=== PATIENT | male | born 1970 | race Native Hawaiian/Other Pacific Islander ===

== ENCOUNTER 2016-12-07 15:01 | Observation (INO) | payer OTHER ==
[~2016-12-07] VITALS: Ht 172.7 cm; Wt 86.0 kg
[~2016-12-07 15:01] MED LIST: ALPR.25 PO; ASPI-119 PO; AUGM875T PO; BUPR150T3 PO; CENTTAB8 PO; EMPA1TAB PO; FEXO60TA PO; GLIP10TA6 PO; GLUCTAB PO; LEXA10TA PO; PRED10PA PO; RITA20TA PO; SIMV40 PO; TOVI4TAB PO; TRAD5TAB PO; TRAM50 PO; VITA-13 PO
[2016-12-07 15:03] VITALS: BP 140/85; PULSE 86; RESP 17; TEMP 98.2; O2SAT 98
[2016-12-07 16:05] LABS: AUTOMATED NEUTROPHIL # 4.4 TH/MM3 (1.8-7.7); BASOPHIL % 0.3 % (0.0-2.0); EOSINOPHIL # 0.2 TH/MM3 (0-0.4); EOSINOPHIL % 2.6 % (0.0-4.0); HEMATOCRIT 44.5 % (39.0-51.0); HEMO FLAGS DIFF FINAL; LYMPH % 38.3 % (9.0-44.0); LYMPHOCYTE # 3.1 TH/MM3 (1.0-4.8); MEAN CELL VOLUME 84.8 FL (80.0-100.0); MEAN CORPUSCULAR HEMOGLOBIN 29.6 PG (27.0-34.0); MEAN CORPUSCULAR HGB CONC 34.9 % (32.0-36.0); MONO % 5.4 % (0.0-8.0); NEUT % 53.4 % (16.0-70.0); PLATELET COUNT 182 TH/MM3 (150-450); RED BLOOD COUNT 5.25 MIL/MM3 (4.50-5.90); RED CELL DISTRIBUTION WIDTH 12.5 % (11.6-17.2); WHITE BLOOD COUNT 8.2 TH/MM3 (4.0-11.0)
--- NOTE | 2016-12-07 16:16 | RADRPT ---
EXAM DATE/TIME: 12/07/2016 16:09 [facility] COMPARISON: No previous studies available for comparison. INDICATIONS : Chest and left upper arm pain MEDICAL HISTORY : None. SURGICAL HISTORY : None. ENCOUNTER: Initial ACUITY: 2 weeks PAIN SCORE: 3/10 LOCATION: chest FINDINGS: A single view of the chest demonstrates the lungs to be symmetrically aerated without evidence of mas s, infiltrate or effusion. The cardiomediastinal contours are unremarkable. Osseous structures are intact. CONCLUSION: No acute disease. Nicolas Aquino MD on December 07, 2016 at 16:15 Board Certified Radiologist. This report was verified electronically.
[2016-12-07 16:36] LABS: ANION GAP 8 MEQ/L (5-15); BICARBONATE 27.3 MEQ/L (21.0-32.0); BLOOD UREA NITROGEN 6 MG/DL (7-18); CHLORIDE 105 MEQ/L (98-107); GLOMERULAR FILTRATION RATE 100 ML/MIN (>89); POTASSIUM 3.9 MEQ/L (3.5-5.1); SODIUM (NA) 140 MEQ/L (136-145)
[2016-12-07 16:40] LABS: CREATINE KINASE 231 U/L (39-308)
[2016-12-07 16:52] LABS: CKMB 0.9 NG/ML (0.5-3.6)
[2016-12-07 17:15] VITALS: O2SAT 98
--- NOTE | 2016-12-07 17:23 | PD ---
HPI Chief Complaint: Medical Clearance Time Seen by Provider: 17:05 Travel History International Travel<30 days: No Contact w/Intl Traveler<30days: No Traveled to known affect area: No History of Present Illness HPI 46-year-old male arrives with chest pain. He developed a neck muscle spasm which eventually radiated down the left arm and into the region of the left chest. He noticed a left chest pain at rest a couple days prior. There is no exertional or pleuritic component however some changes in position worsen the pain. He reports a family history of coronary artery disease with his mother suffering a heart attack in her early 50s. He has diabetes. He denies hypertension. He does not smoke. He recently initiated a workout regimen. He' s also been performing dips. No fever/chills. PFSH Past Medical History Hx Anticoagulant Therapy: Yes (ASA 81MG DAILY) Cardiovascular Problems: No High Cholesterol: Yes Chemotherapy: No Cerebrovascular Accident: No Diabetes: Yes (ON METFORMIN) Respiratory: Yes (SLEEP APNEA, WHEEZING) Social History Alcohol Use: No Tobacco Use: Yes Substance Use: No Allergies-Medications (Allergen,Severity, Reaction): Coded Allergies: No Known Allergies (Verified , 12/07/16) Reported Meds & Prescriptions Reported Meds & Active Scripts Active Ultram (Tramadol HCl) 50 Mg Tab 50 Mg PO Q6H PRN FOR PAIN Sterapred Ds 12 Day Pack (Prednisone) 10 Mg Benson 10 Mg PO DIRECTED USE DIRECTED Augmentin 875 mg Tab (Amoxicillin & Pot Clavulanate 875 mg Tab) 875 Mg Tab 875 Mg PO BID Reported Ritalin (Methylphenidate HCl) 20 Mg Tab 1 Tab PO BID Dillon Low Dose (Aspirin) 81 Mg Tab 81 Mg PO HS Bupropion Hcl Xl (Bupropion HCl) 150 Mg Tab 150 Mg PO HS Xanax 0.25 Mg (Alprazolam) Alprazolam 0.25 mg Tab 1 Tab PO BID PRN Tradjenta (Linagliptin) 5 Mg Tab 5 Mg PO DAILY@1600 Metformin (Metformin HCl) 500 Mg Tab 500 Mg PO DAILY@1600 Glipizide 10 Mg Tab 10 Mg PO BID TAKE BEFORE MEALS Jardiance (Empagliflozin) 10 Mg Tab 10 Mg PO HS Lexapro (Escitalopram Oxalate) 10 Mg Tab 10 Mg PO DAILY Toviaz (Fesoterodine Fumarate) 4 Mg Tab 4 Mg PO DAILY Centrum Adults (Multiple Vitamins W/ Minerals) 1 Tab Tab 1 Tab PO HS Vitamin D3 1000 Unit Tab (Cholecalciferol) 1,000 Unit Tab 4,000 Unit PO HS Lucrecia (Fexofenadine HCl) 60 Mg Tab 180 Mg PO DAILY PRN Simvastatin 40 mg (Simvastatin) 40 Mg Tab 1 Tab PO DAILY Review of Systems Except as stated in HPI: all other systems reviewed are Neg Cardiovascular: Positive: Chest Pain or Discomfort Physical Exam Narrative GENERAL: 46 yo M, WNWD, NAD SKIN: Warm and dry. HEAD: Atraumatic. Normocephalic. EYES: Pupils equal and round. No scleral icterus. No injection or drainage. ENT: No nasal bleeding or discharge. Mucous membranes pink and moist. NECK: Trachea midline. No JVD. CARDIOVASCULAR: Regular rate and rhythm. Minimal TTP left anterior chest wall. RESPIRATORY: No accessory muscle use. Clear to auscultation. Breath sounds equal bilaterally. GASTROINTESTINAL: Abdomen soft, non-tender, nondistended. Hepatic and splenic margins not palpable. MUSCULOSKELETAL: Extremities without clubbing, cyanosis, or edema. No obvious deformities. NEUROLOGICAL: Awake and alert. No obvious cranial nerve deficits. Motor grossly within normal limits. Five out of 5 muscle strength in the arms and legs. Normal speech. PSYCHIATRIC: Appropriate mood and affect; insight and judgment normal. Data Data Last Documented VS Vital Signs Date Time Temp Pulse Resp B/P Pulse Ox O2 Delivery O2 Flow Rate FiO2 12/07/16 15:24 12/07/16 15:03 98.2 86 17 98 VS reviewed BP is 164/75 Orders Electrocardiogram (12/07/16 ) Complete Blood Count With Diff (12/07/16 15:52) Basic Metabolic Panel (Bmp) (12/07/16 15:52) Ckmb (Isoenzyme) Profile (12/07/16 15:52) Troponin I (12/07/16 15:52) Chest, Single Ap (12/07/16 15:52) Iv Access Insert/Monitor (12/07/16 15:52) Ecg Monitoring (12/07/16 15:52) Oxygen Administration (12/07/16 15:52) Oximetry (12/07/16 15:52) CKMB (12/07/16 15:55) CKMB% (12/07/16 15:55) Labs Laboratory Tests Test 12/07/16 15:55 White Blood Count 8.2 TH/MM3 Red Blood Count 5.25 MIL/MM3 Hemoglobin 15.5 GM/DL Hematocrit 44.5 % Mean Corpuscular Volume 84.8 FL Mean Corpuscular Hemoglobin 29.6 PG Mean Corpuscular Hemoglobin 34.9 % Concent Red Cell Distribution Width 12.5 % Platelet Count 182 TH/MM3 Mean Platelet Volume 9.1 FL Neutrophils (%) (Auto) 53.4 % Lymphocytes (%) (Auto) 38.3 % Monocytes (%) (Auto) 5.4 % Eosinophils (%) (Auto) 2.6 % Basophils (%) (Auto) 0.3 % Neutrophils # (Auto) 4.4 TH/MM3 Lymphocytes # (Auto) 3.1 TH/MM3 Monocytes # (Auto) 0.4 TH/MM3 Eosinophils # (Auto) 0.2 TH/MM3 Basophils # (Auto) 0.0 TH/MM3 CBC Comment DIFF FINAL Differential Comment Sodium Level 140 MEQ/L Potassium Level 3.9 MEQ/L Chloride Level 105 MEQ/L Carbon Dioxide Level 27.3 MEQ/L Anion Gap 8 MEQ/L Blood Urea Nitrogen 6 MG/DL Creatinine 0.83 MG/DL Estimat Glomerular Filtration 100 ML/MIN Rate Random Glucose 173 MG/DL Calcium Level 8.9 MG/DL Total Creatine Kinase 231 U/L Creatine Kinase MB 0.9 NG/ML Troponin I LESS THAN 0.02 NG/ML [facility] Medical Decision Making Medical Screen Exam Complete: Yes Emergency Medical Condition: Yes Medical Record Reviewed: Yes Differential Diagnosis NSTEMI, unstable angina, coronary vasospasm, PE, PTX, aortic dissection, pericarditis, myocarditis, endocarditis, PNA, esophageal disease, aneurysm, musculoskeletal etiologies, anxiety, cocaine/sympathomimetic abuse Narrative Course EKG reveals a sinus rhythm normal axis intervals no acute ischemia Troponin less than 0.02 CBC & BMP Diagram 12/07/16 15:55 Last 24 hours Impressions Chest X-Ray 12/07/16 1552 Signed Impressions: Service Date/Time: Wednesday, December 07, 2016 16:09 - CONCLUSION: No acute disease. Nicolas Aquino MD Patient will undergo chest pain center protocol. Diagnosis Primary Impression: Chest pain Qualified Code: R07.9 - Chest pain, unspecified type Admitting Information Admitting Physician Requests: Observation Tony Alberts MD Dec 07, 2016 17:23
[2016-12-07] MEDS ORDERED: ONDANSETRON HCL 4 MG/2 ML VIAL IV PRN (17:30)
[2016-12-07] MEDS ORDERED: TEMAZEPAM 15 MG CAP PO PRN (17:30)
[2016-12-07] MEDS ORDERED: ACETAMINOPHEN/HYDROcodone 325 MG/7.5 MG TAB PO PRN (17:30)
[2016-12-07] MEDS ORDERED: ALPRAZolam 0.25 MG TAB PO PRN (17:30)
[2016-12-07] MEDS ORDERED: NITROGLYCERIN 0.4 MG SL 25 TABS/BTL SL PRN (17:30)
[2016-12-07] MEDS ORDERED: MORPHINE SULFATE 4 MG/ML INJ IV PRN (17:30)
[2016-12-07 20:11] LABS: CREATINE KINASE 206 U/L (39-308)
[2016-12-07 22:30] VITALS: PULSE 78
[2016-12-07 22:32] VITALS: BP 116/65; PULSE 72; RESP 20; TEMP 97.8; O2SAT 98
[2016-12-07 23:12] LABS: CREATINE KINASE 213 U/L (39-308)
[2016-12-07 23:25] LABS: CKMB 0.7 NG/ML (0.5-3.6)
[2016-12-07 23:30] VITALS: O2SAT 97
[2016-12-08 04:57] VITALS: BP 135/76; PULSE 68; RESP 18; TEMP 98.4; O2SAT 97
[2016-12-08 08:02] VITALS: BP 115/75; PULSE 68; RESP 19; TEMP 97.3; O2SAT 98
[2016-12-08] MEDS ORDERED: ASPIRIN 325 MG TAB PO SCH (09:00)
--- NOTE | 2016-12-08 09:27 | EKG ---
Date Performed: 12/07/2016 Time Performed: 19:16:04 PTAGE: 46 years EKG: Sinus rhythm NORMAL ECG Since PREVIOUS TRACING , no significant change noted PREVIOUS TRACIN12/07/2016 15.50 DOCTOR: Nova Beck Interpretating Date/Time 12/08/2016 09:26:59
--- NOTE | 2016-12-08 10:31 | HHI.HP ---
[facility] Primary Care Physician Iker Brush MD, PhD Chief Complaint Chest pain History of Present Illness This is a 46-year-old male that presents to ED complaining of a chest discomfort. He states that 3 weeks ago he had a discomfort in his neck and back. He states he had pulled a muscle. Then is that began to feel better he started having a discomfort in his left upper arm it would radiate into the axillary region and into the left chest. Certain motions or movements as well as pressing on the areas can bring on or exacerbated the symptoms. Cannot recall trauma. Denies shortness of breath, nausea, or diaphoresis. He states he believes it is a pulled muscle however he was concerned being that his mother has coronary disease. Denies recent illness. Denies fevers or chills. Review of Systems General: Patient denies fevers, chills recent, and recent travel HEENT: Patient denies headache, sore throat, difficulty swallowing. Cardiovascular: Has the chest discomfort as mentioned above. Denies sensation of heart beating rapidly or irregularly. No syncope. Denies diaphoresis Respiratory: Denies shortness of breath or inspirational chest discomfort. Denies coughing wheezing or hemoptysis. GI: Patient denies nausea, vomiting, diarrhea, abdominal pain, bloody stools. Musculoskeletal: Patient denies joint pain or edema. Denies calf pain or edema. Neurovascular: Patient denies numbness, tingling, weakness in extremities. Denies headache. Endocrine: Denies polyuria and polydipsia. Hematologic: Denies easy bruising. Skin: Denies rash or itching. Past Family Social History Allergies: Coded Allergies: No Known Allergies (Verified , 12/07/16) Past Medical History Diabetes and hyperlipidemia. Sleep apnea. Denies hypertension and coronary disease. Past history of tobacco abuse. Past Surgical History Noncontributory. Reported Medications Reported Meds & Active Scripts Active Reported Dillon Low Dose (Aspirin) 81 Mg Tab 81 Mg PO HS Bupropion Hcl Xl (Bupropion HCl) 150 Mg Tab 150 Mg PO HS Tradjenta (Linagliptin) 5 Mg Tab 5 Mg PO DAILY@1600 Glucophage XR 24 HR (Metformin HCl) 500 Mg Tab 500 Mg PO DAILY@1600 Glipizide 10 Mg Tab 10 Mg PO BID TAKE BEFORE MEALS Jardiance (Empagliflozin) 10 Mg Tab 10 Mg PO HS Lexapro (Escitalopram Oxalate) 10 Mg Tab 10 Mg PO DAILY Toviaz (Fesoterodine Fumarate) 4 Mg Tab 4 Mg PO DAILY Centrum Adults (Multiple Vitamins W/ Minerals) 1 Tab Tab 1 Tab PO HS Vitamin D3 (Cholecalciferol) 1,000 Unit Tab 10,000 Unit PO DAILY Lucrecia (Fexofenadine HCl) 60 Mg Tab 180 Mg PO DAILY PRN Simvastatin 40 mg (Simvastatin) 40 Mg Tab 1 Tab PO DAILY Active Ordered Medications Current Medications Medications (Trade) Dose Ordered Sig/Kenzie Route Start Time Stop Time Status Last Admin ([place] 7.5-325 Mg) 1 tab Q4H PRN PO 12/07/16 17:30 (Morphine Inj) 2 mg Q4H PRN IV 12/07/16 17:30 (Zofran Inj) 4 mg Q6H PRN IV 12/07/16 17:30 (Nitrostat Sl) 0.4 mg Q5M PRN SL 12/07/16 17:30 (Aspirin) 325 mg DAILY PO 12/08/16 09:00 12/08/16 10:04 (Restoril) 15 mg HS PRN PO 12/07/16 17:30 (Xanax) 0.25 mg Q8H PRN PO 12/07/16 17:30 Family History His mother had an PA in her 50s. Social History Patient along or smoke cigarettes. Has occasional alcohol. Denies illicit drugs. Physical Exam Vital Signs Vital Signs Date Time Temp Pulse Resp B/P Pulse Ox O2 Delivery O2 Flow Rate FiO2 12/08/16 08:02 97.3 68 19 115/75 98 12/08/16 04:57 98.4 68 18 135/76 97 12/07/16 23:30 97 12/07/16 22:32 97.8 72 20 116/65 98 12/07/16 22:30 78 12/07/16 17:15 98 Room Air 12/07/16 17:15 98 12/07/16 15:24 12/07/16 15:03 98.2 86 17 140/85 98 Physical Exam GENERAL: This is a well-nourished, well-developed patient, in no apparent distress. Patient speaks in clear complete sentences. Patient is pleasant. HEENT: Head is atraumatic and normocephalic. Neck is supple without lymphadenopathy and trachea is midline. No JVD or carotid bruits. CARDIOVASCULAR: Regular rate and rhythm without murmurs, gallops, or rubs. RESPIRATORY: Left anterior chest wall is tender. Also is discomfort with movement of the left arm it reproduces into the chest. This is the discomfort he has been having. Clear to auscultation. Breath sounds equal bilaterally. No wheezes, rales, or rhonchi. No use of accessory muscles. GASTROINTESTINAL: Abdomen is nontender, nondistended. Abdomen soft. No obvious pulsatile mass or bruit. No CVA tenderness. Strong femoral pulses bilaterally. Normal bowel sounds in all quadrants. MUSCULOSKELETAL: Patient is moving upper and lower extremities freely. No calf tenderness or edema, no Homans sign. Strong pulses in upper and lower extremities. NEUROLOGICAL: Patient is alert and oriented. Cranial nerves 2-12 are grossly intact. No focal deficits and speech is clear. SKIN: No rash and turgor is normal. Laboratory Laboratory Tests Test 12/07/16 12/07/16 12/07/16 15:55 19:17 21:41 White Blood Count 8.2 Red Blood Count 5.25 Hemoglobin 15.5 Hematocrit 44.5 Mean Corpuscular Volume 84.8 Mean Corpuscular Hemoglobin 29.6 Mean Corpuscular Hemoglobin 34.9 Concent Red Cell Distribution Width 12.5 Platelet Count 182 Mean Platelet Volume 9.1 Neutrophils (%) (Auto) 53.4 Lymphocytes (%) (Auto) 38.3 Monocytes (%) (Auto) 5.4 Eosinophils (%) (Auto) 2.6 Basophils (%) (Auto) 0.3 Neutrophils # (Auto) 4.4 Lymphocytes # (Auto) 3.1 Monocytes # (Auto) 0.4 Eosinophils # (Auto) 0.2 Basophils # (Auto) 0.0 CBC Comment DIFF FINAL Differential Comment Sodium Level 140 Potassium Level 3.9 Chloride Level 105 Carbon Dioxide Level 27.3 Anion Gap 8 Blood Urea Nitrogen 6 Creatinine 0.83 Estimat Glomerular Filtration 100 Rate Random Glucose 173 Calcium Level 8.9 Total Creatine Kinase 231 206 213 Creatine Kinase MB 0.9 1.0 0.7 Troponin I LESS THAN 0.02 LESS THAN 0.02 LESS THAN 0.02 Result Diagram: 12/07/16 1555 12/07/16 1558 Imaging Last 24 hours Impressions Chest X-Ray 12/07/16 841 Signed Impressions: Service Date/Time: Wednesday, December 07, 2016 16:09 - CONCLUSION: No acute disease. Nicolas Aquino MD Course EKGs have sinus rhythm without significant ST segment depressions or elevations. Assessment and Plan Assessment and Plan * Atypical chest pain: Patient has had serial cardiac enzymes and EKGs for ruling out purposes. He has been seen by Dr. Beck cardiology in the chest pain center and will undergo a Abdi protocol ETT. He'll be discharged home if the stress test were to be nonischemic and will be given a prescription of Naprosyn. He should follow-up with his primary care physician. * Diabetes: He will be on sliding scale insulin coverage while in the chest pain center. He should follow diabetic diet and resume his medication at discharge. * Hyperlipidemia: Continue current medication. * Sleep apnea: Continue use of his CPAP device. Patient is stable at this time. He is agreeable to this plan. Dinesh De Souza Dec 08, 2016 10:31
[2016-12-08 11:18] VITALS: BP 118/79; PULSE 98; RESP 18; TEMP 97.9; O2SAT 98
[2016-12-08] MEDS ORDERED: DEXTROSE 50% IN WATER 50 ML VIAL(D50) IV PRN (13:00)
[2016-12-08] MEDS ORDERED: GLUCAGON 1 MG/ML VIAL IM/SQ PRN (13:00)
[2016-12-08] MEDS ORDERED: PRAVASTATIN SOD 80 MG TAB PO SCH (15:00)
--- NOTE | 2016-12-08 15:12 | RADRPT ---
EXAM DATE/TIME: 12/08/2016 12:58 [facility] COMPARISON: No previous studies available for comparison. INDICATIONS : Neck spasm radiating down to left arm and left chest for 2 days. Angina DOSE: 26.3 mCi Tc99m Myoview at stress 8.7 mCi Tc99m Myoview at rest REST HEART RATE: 77 BPM TARGET HEART RATE: 149 BPM MAX HEART RATE: 161 BPM REST BLOOD PRESSURE: 118/70 mmHg MAX BLOOD PRESSURE: 132/80 mmHg EJECTION FRACTION: 53% MEDICAL HISTORY : Hypercholesterolemia. Diabetes mellitus type 2. SURGICAL HISTORY : None. ENCOUNTER: Initial ACUITY: 2 days PAIN SCALE: 5/10 LOCATION: Left chest TECHNIQUE: The patient underwent upright treadmill exercise in the chest pain center. Continuous ECG tracing wa s monitored during stress. Gated SPECT imaging was performed after stress, and conventional SPECT im aging was performed at rest. The examination was performed on a SPECT/CT scanner, both attenuation-c orrected and non-corrected datasets were reviewed. FINDINGS: DISTRIBUTION: The maximum perfused segment at stress is in the lateral wall. PERFUSION STUDY: There are no reversible perfusion defects identified. A small fixed defect anterior wall identified. GATED STUDY: There is intact wall motion and thickening without hypokinetic or dyskinetic segments. CONCLUSION: 1. No definite reversible perfusion defects are identified to suggest stress-induced myocardial ische gregorio. 2. Small fixed defect anterior wall. RISK CATEGORY: Low (<1% Annual Mortality Rate) Nicolas Aquino MD on December 08, 2016 at 15:08 Board Certified Radiologist. This report was verified electronically.
[2016-12-08 15:22] VITALS: BP 123/94; PULSE 73; RESP 18; TEMP 98.1; O2SAT 93
[2016-12-08] MEDS ORDERED: NAPR500 PO (15:35)
--- NOTE | 2016-12-08 15:36 | HHI.DCPOC ---
Discharge Care Plan Diagnosis: (1) Chest pain (2) Hyperlipidemia (3) DM (diabetes mellitus) Goals to Promote Your Health * To prevent worsening of your condition and complications * To maintain your health at the optimal level Directions to Meet Your Goals Take your medications as prescribed Follow your dietary instruction Follow activity as directed Keep your appointments as scheduled Take your immunizations and boosters as scheduled If your symptoms worsen call your PCP, if no PCP go to Urgent Care Center or Emergency Room Smoking is Dangerous to Your Health. Avoid second hand smoke Call the 24-hour hour crisis hotline for domestic abuse at Dinesh De Souza Dec 08, 2016 15:36
[2016-12-08 15:58] VITALS: PULSE 69
[2016-12-08] MEDS ORDERED: INSULIN ASPART SUPPLEMENTAL SCALE SQ SCH (16:00)
--- NOTE | 2016-12-08 16:25 | EKG ---
Date Performed: 12/07/2016 Time Performed: 15:50:37 PTAGE: 46 years EKG: Sinus rhythm NONSPECIFIC T-WAVE ABNORMALITY BORDERLINE ECG NO PREVIOUS TRACING DOCTOR: Nova Beck Interpretating Date/Time 12/08/2016 16:23:12
--- NOTE | 2016-12-08 16:28 | TR ---
Date Performed: 12/08/2016 Time Performed: 10:45:10 DOCTOR: Nova Beck DRUG LIST: CLINICAL HISTORY: REASON FOR TEST: REASON FOR ENDING: OBSERVATION: CONCLUSION: LEONA PROTOCOL. CP DID NOT WORSEN. TEST STOPPED AFTER EXCEEDING GOAL HR SECONDARY TO SOB AND LEG FATIGUE.Maximum ZK=650 % Max HR Achieved=96.0% Total Exercise Time=9:41 COMMENTS:
--- NOTE | 2016-12-08 16:29 | TR ---
Date Performed: 12/08/2016 Time Performed: 14:04:26 DOCTOR: Nova Beck DRUG LIST: CLINICAL HISTORY: REASON FOR TEST: REASON FOR ENDING: OBSERVATION: CONCLUSION: NUC ETT. NO CP OR SOB. Maximum EN=565 % Max HR Achieved=94.0% Maximum ML=146/84 Tota l Exercise Time=9:35 COMMENTS:
--- NOTE | 2016-12-09 12:18 | EKG ---
Date Performed: 12/07/2016 Time Performed: 20:58:19 PTAGE: 46 years EKG: Sinus rhythm NONSPECIFIC T-WAVE ABNORMALITY BORDERLINE ECG PREVIOUS TRACING : 12/07/2016 19.16 DOCTOR: Patrice Campos Interpretating Date/Time 12/09/2016 12:17:09
== END 2016-12-08 16:28 | disposition home or self-care (01) ==
LOC: NEPE 15:01 → NEDA 17:25 → NEPGCP 19:43
PROVIDERS: ADMIT Internal Medicine Cardiovascular Disease; ATTEND Internal Medicine Cardiovascular Disease
DX: R07.9 Chest pain, unspecified (principal); M62.838 Other muscle spasm; Z82.49 Family history of ischemic heart disease and other diseases of the circulatory system; E11.9 Type 2 diabetes mellitus without complications; Z79.82 Long term (current) use of aspirin; E78.00 Pure hypercholesterolemia, unspecified; G47.30 Sleep apnea, unspecified; R06.2 Wheezing; Z79.84 Long term (current) use of oral hypoglycemic drugs; E78.5 Hyperlipidemia, unspecified; R94.31 Abnormal electrocardiogram [ECG] [EKG]
CPT/HCPCS: 71010; 78452; 80048; 82550; 82552; 82948; 84484; 85025; 93005; 93017; 99285; A9502; G0378

== ENCOUNTER → 2017-08-27 | Outpatient (CLI) | payer OTHER ==
[~2017-08-27] MED LIST changes: -ALPR.25 PO; +ASPI81TA23 PO; -AUGM875T PO; +BUPR150T5 PO; +CHOL1TAB41 PO; +FEXO15TA PO; +METF500T PO; +MULT-367 PO; +NAPR500 PO; +NOVONP2 SQ; -PRED10PA PO; -RITA20TA PO; -TRAM50 PO; +ZOCO40TA PO
--- NOTE | 2017-08-27 09:31 | RADRPT ---
EXAM DATE/TIME: 08/27/2017 09:20 [facility] COMPARISON: No previous studies available for comparison. INDICATIONS : Evaluate for pneumothorax, pneumonia or communicable disease. Pre-op, cervical spine surgery. MEDICAL HISTORY : None. SURGICAL HISTORY : None. ENCOUNTER: Initial ACUITY: 1 day PAIN SCORE: 0/10 LOCATION: Bilateral chest FINDINGS: PA and lateral views of the chest demonstrate the lungs to be symmetrically aerated without evidence of mass, infiltrate or effusion. The cardiomediastinal contours are unremarkable. Osseous structure s are intact. CONCLUSION: 1. No acute cardiopulmonary disease. Prabhakar Luque MD on August 27, 2017 at 9:29 Board Certified Radiologist. This report was verified electronically.
[2017-08-27 10:13] LABS: AUTOMATED NEUTROPHIL # 4.7 TH/MM3 (1.8-7.7); BASOPHIL % 0.2 % (0.0-2.0); EOSINOPHIL # 0.2 TH/MM3 (0-0.4); EOSINOPHIL % 2.3 % (0.0-4.0); HEMATOCRIT 43.7 % (39.0-51.0); LYMPH % 32.8 % (9.0-44.0); LYMPHOCYTE # 2.6 TH/MM3 (1.0-4.8); MEAN CELL VOLUME 86.4 FL (80.0-100.0); MEAN CORPUSCULAR HEMOGLOBIN 29.7 PG (27.0-34.0); MEAN CORPUSCULAR HGB CONC 34.3 % (32.0-36.0); MEAN PLATELET VOLUME 10.1 FL (7.0-11.0); MONO % 6.1 % (0.0-8.0); MONOCYTE # 0.5 TH/MM3 (0-0.9); NEUT % 58.6 % (16.0-70.0); PLATELET COUNT 184 TH/MM3 (150-450); RED BLOOD COUNT 5.06 MIL/MM3 (4.50-5.90); RED CELL DISTRIBUTION WIDTH 12.6 % (11.6-17.2)
[2017-08-27 10:21] LABS: BILIRUBIN, URINE NEG (NEG); BLOOD, URINE NEG (NEG); GLUCOSE,URINE 1000 mg/dL (NEG); KETONE, URINE NEG (NEG); MUCUS URINE FEW /lpf (OCC); NITRITE,URINE NEG (NEG); SPERM, URINE RARE; URINE COLOR LIGHT-YELLOW (YELLW/STRAW); URINE LEUKOCYTE ESTERASE NEG (NEG)
[2017-08-27 10:26] LABS: INTERNATIONAL NORMALIZED RATIO 1.1 RATIO; PROTHROMBIN TIME - PATIENT 10.8 SEC (9.8-11.6)
[2017-08-27 10:44] LABS: ALBUMIN 4.3 GM/DL (3.4-5.0); AST (GOT) 24 U/L (15-37); BICARBONATE 26.7 MEQ/L (21.0-32.0); BLOOD UREA NITROGEN 8 MG/DL (7-18); CALCIUM 9.2 MG/DL (8.5-10.1); CHLORIDE 104 MEQ/L (98-107); CREATININE 0.73 MG/DL (0.60-1.30); GLOMERULAR FILTRATION RATE 116 ML/MIN (>89); GLUCOSE,FASTING 94 MG/DL (74-99); SODIUM (NA) 140 MEQ/L (136-145)
[2017-08-27 10:45] LABS: ALT (GPT) 44 U/L (12-78)
[2017-08-27 10:47] LABS: ALKALINE PHOSPHATASE 108 U/L (45-117); TOTAL BILIRUBIN ADULT 0.4 MG/DL (0.2-1.0); TOTAL PROTEIN 7.6 GM/DL (6.4-8.2)
--- NOTE | 2017-08-27 14:53 | EKG ---
Date Performed: 08/27/2017 Time Performed: 08:37:38 PTAGE: 47 years EKG: Sinus rhythm Since previous tracing, no significant change noted Normal ECG PREVIOUS TRACING : 12/07/2016 20.58 DOCTOR: Jaron Ospina Interpretating Date/Time 08/27/2017 14:51:04
== END ==
LOC: CPRE 08:09
PROVIDERS: ATTEND Neurological Surgery
DX: Z01.810 Encounter for preprocedural cardiovascular examination (principal); Z01.811 Encounter for preprocedural respiratory examination; Z01.812 Encounter for preprocedural laboratory examination; Z01.818 Encounter for other preprocedural examination; M50.20 Other cervical disc displacement, unspecified cervical region; M79.609 Pain in unspecified limb
CPT/HCPCS: 36415; 71020; 80053; 81001; 85025; 85610; 85730; 87640; 87641; 93005

== ENCOUNTER → 2017-09-01 | Day surgery (SDC) | payer OTHER ==
[~2017-09-01] MED LIST changes: +ACETAMINOPHEN 1000 MG/100 ML 0 ML IV ONE; -ASPI-119 PO; -BUPR150T3 PO; -CENTTAB8 PO; +CHLORHEXIDINE GLUCONATE 2 % 1 PACK (2 CLOTHS) TOPICAL PRN; -FEXO60TA PO; -GLUCTAB PO; +LACTATED RINGER'S 1000 ML IV PRN; +METOPROLOL TARTRATE 25 MG TAB PO PRN; +MIDAZOLAM HCL 2 MG/2 ML VIAL ONE; -NAPR500 PO; +POVIDONE IODINE 5% (ANTISEPSIS KIT) 4 APPLICATIONS EACH NARE PRN; +PROPOFOL 500 MG/50 ML INJ 0 ML ONE; -SIMV40 PO; +SODIUM CHLOR 0.9% 1000 ML INJ 1,000 ML IV SCH; +SODIUM CHLORID 0.9% 500 ML IV PRN; +VANCOMYCIN 1,000 MG/NS 250 ML IV SCH; -VITA-13 PO
[2017-09-01 07:00] VITALS: TEMP 100.6
== END | disposition home or self-care (01) ==
LOC: HSDC 06:37
PROVIDERS: ATTEND Neurological Surgery
DX: M50.20 Other cervical disc displacement, unspecified cervical region (principal); Z53.09 Procedure and treatment not carried out because of other contraindication
CPT/HCPCS: G0463; J3010; 99211; J0131; J2250

== ENCOUNTER 2017-09-10 06:37 | Observation (INO) | payer OTHER ==
[~2017-09-10] VITALS: Ht 172.7 cm; Wt 86.2 kg
[~2017-09-10 06:37] MED LIST changes: -ACETAMINOPHEN 1000 MG/100 ML 0 ML IV ONE; -CHLORHEXIDINE GLUCONATE 2 % 1 PACK (2 CLOTHS) TOPICAL PRN; -LACTATED RINGER'S 1000 ML IV PRN; -METOPROLOL TARTRATE 25 MG TAB PO PRN; -MIDAZOLAM HCL 2 MG/2 ML VIAL ONE; -POVIDONE IODINE 5% (ANTISEPSIS KIT) 4 APPLICATIONS EACH NARE PRN; -PROPOFOL 500 MG/50 ML INJ 0 ML ONE; -SODIUM CHLOR 0.9% 1000 ML INJ 1,000 ML IV SCH; -SODIUM CHLORID 0.9% 500 ML IV PRN; -VANCOMYCIN 1,000 MG/NS 250 ML IV SCH
[2017-09-10] MEDS ORDERED: METOPROLOL TARTRATE 25 MG TAB PO PRN (07:15)
[2017-09-10] MEDS ORDERED: SODIUM CHLORID 0.9% 500 ML IV PRN (07:15)
[2017-09-10] MEDS ORDERED: CHLORHEXIDINE GLUCONATE 2 % 1 PACK (2 CLOTHS) TOPICAL PRN (07:15)
[2017-09-10] MEDS ORDERED: LACTATED RINGER'S 1000 ML IV PRN (07:15)
[2017-09-10] MEDS ORDERED: POVIDONE IODINE 5% (ANTISEPSIS KIT) 4 APPLICATIONS EACH NARE PRN (07:15)
[2017-09-10] MEDS ORDERED: FLUTI110I INH (07:27)
[2017-09-10] MEDS ORDERED: SODIUM CHLOR 0.9% 1000 ML INJ 1,000 ML IV SCH (07:30)
[2017-09-10] MEDS ORDERED: ACETAMINOPHEN 1000 MG/100 ML 100 ML IV ONE (08:15)
[2017-09-10] MEDS ORDERED: PROPOFOL 500 MG/50 ML ONE (08:16)
[2017-09-10] MEDS ORDERED: HYDROmorphone HCL PF 2 MG/ML VIAL ONE (08:16)
[2017-09-10] MEDS ORDERED: THROMBIN (TOPICAL) 5,000 UNIT VIAL ONE (08:24)
[2017-09-10] MEDS ORDERED: GENTAMICIN SULFATE 80 MG/2 ML VIAL ONE (08:24)
[2017-09-10] MEDS ORDERED: GELFOAM SIZE 100 ONE (08:24)
[2017-09-10] MEDS: VANCOMYCIN 1,000 MG/NS 250 ML IV SCH ×4 (08:35→11:57)
[2017-09-10] MEDS ORDERED: GLUCAGON 1 MG/ML VIAL OTHER PRN ×2 (09:45→10:00)
[2017-09-10] MEDS ORDERED: ONDANSETRON HCL 4 MG/2 ML VIAL IV PRN (09:45)
[2017-09-10] MEDS ORDERED: MAGNESIUM HYDROXIDE SUSP 30 ML CUP PO PRN (09:45)
[2017-09-10] MEDS ORDERED: ACETAMINOPHEN 325 MG TAB PO PRN (09:45)
[2017-09-10] MEDS ORDERED: RESP: ALBUTEROL 2.5 MG/3 ML NEB (PRN) INH (09:45)
[2017-09-10] MEDS ORDERED: CYCLOBENZAPRINE HCL 10 MG TAB PO PRN (09:45)
[2017-09-10] MEDS ORDERED: DEXTROSE 50% IN WATER 50 ML VIAL(D50) IV PUSH PRN ×2 (09:45→10:00)
[2017-09-10] MEDS ORDERED: MORPHINE SULFATE 4 MG/ML INJ IV PUSH PRN (09:45)
[2017-09-10] MEDS ORDERED: cloNIDine HCL 0.1 MG TAB PO/NG PRN (09:45)
[2017-09-10] MEDS ORDERED: BISACODYL 10 MG SUPP RECTAL PRN (09:45)
[2017-09-10] MEDS ORDERED: MENTHOL LOZENGE BUCCAL PRN (09:45)
[2017-09-10] MEDS ORDERED: ACETAMINOPHEN/HYDROcodone 325 MG/10 MG TAB PO PRN (09:45)
[2017-09-10] MEDS ORDERED: PHENYLEPHRINE HCL 10 MG/ML VIAL IV ONE (12:00)
[2017-09-10] MEDS: INSULIN ASPART SUPPLEMENTAL SCALE SQ SCH ×3 (12:00→20:17)
[2017-09-10] MEDS ORDERED: INSULIN ASPART SUPPLEMENTAL SCALE SQ SCH (12:00)
[2017-09-10] MEDS ORDERED: PROPOFOL 200 MG/20 ML AMP IV ONE (12:00)
[2017-09-10] MEDS ORDERED: LACTATED RINGER'S 1000 ML INJ 2,000 ML IV ONE (12:00)
[2017-09-10] MEDS ORDERED: PHENYLEPH/NS 1000 MCG/10 ML SYR IV ONE (12:00)
[2017-09-10] MEDS ORDERED: LIDOCAINE HCL 1% PF 5 ML SYRINGE OTHER ONE (12:00)
[2017-09-10] MEDS ORDERED: DEXAMETHASONE SOD PHOS 4 MG/ML VIAL IV ONE (12:00)
[2017-09-10] MEDS ORDERED: ROCURONIUM INJ 50 MG/5 ML SYRINGE IV PUSH ONE (12:00)
[2017-09-10] MEDS ORDERED: ONDANSETRON HCL 4 MG/2 ML VIAL IV PUSH ONE (12:00)
[2017-09-10] MEDS ORDERED: DO NOT ADM ANY ANTICOAGULANT DRUGS PRN (12:51)
[2017-09-10] MEDS ORDERED: HYDR-3583 PO (13:53)
[2017-09-10] MEDS ORDERED: MIDAZOLAM HCL 2 MG/2 ML VIAL ONE (14:16)
--- NOTE | 2017-09-10 15:14 | PD.OP ---
Operative Report Date of Surgery: Sep 10, 2017 Preoperative Diagnosis: Cervical spondylosis and stenosis. Cervical disk herniation Postoperative Diagnosis: Cervical spondylosis and stenosis. Cervical disk herniation Procedure: C5-6 anterior cervical discectomy and arthroplasty using Mobi C C6-7 anterior cervical discectomy, interbody arthodhesis using PEEK cage filled with autologous bone graft, Simplicity plate and screws. Anesthesia: general Surgeon: Nishant Bermudez Superintendent Commissary(s): Perlita Vargas Operation and Findings: INDICATIONS FOR THE PROCEDURE Mr. Marks is a 47 year-old male who presented with intractable neck pain and clinical evidence of C6 and C7 upper extremity radiculopathy. He was found to have C5-6 and C6-7 disk herniations with osteophitic/disk complexes causing mass effect over the exiting nerve roots. He failed maximum nonsurgical management including multiple modalities of conservative nonoperative treatment. A surgical decompression and arthroplasty/arthrodhesis were indicated. The [id number] details of the procedure, indications, alternatives, risks and potential complications were fully discussed with the patient. The patient fully understood. All The questions were answered. No guarantees were given. The patient voiced requesting the procedure and provided informed consents. The patient was offered the alternative of delaying the procedure and continuing with nonsurgical management. DETAILS OF THE SURGICAL PROCEDURE SURGICAL APPROACH A skin incision was made along the middle cervical crease with a #10 blade. The dissection was carried out through the platysma exposing the sternocleidomastoid muscle. The cervical spine was approached following the fascial layers of the neck, just medial to the anterior border of the sternocleidomastoid and carotid sheath by a combination of sharp and dull dissection. The omohyoid muscle was identified and carefully dissected laterally and the deep cervical fascia was carefully opened. The longus colli muscles were retracted to each side of the midline. A marker was placed at the C5-6 disc space and a cross-table lateral x-ray performed with a C-arm. An AP xray was then obtained as well, and the midline of the disk space was defined. SURGICAL DECOMPRESSION AT C5-6 In order to decompress the anterior surface of the spinal cord it was necessary to perform a microsurgical resection of the disk. At this point in the procedure the operating microscope was draped in the usual sterile fashion and brought to the field. The rest of the surgical procedure was performed using microdissection technique with the exception of the closure. Under the operative microscopic a self-retaining retractor was placed underneath the longus colli muscle. The annulus at C5-6 was incised with a #15 blade and microdiscectomy was then carefully carried out using angled curets and pituitary forceps. The patient had a large disk extrusion which was producing mass affect on the exiting nerve root. This was carefully dissected with a nerve hock and resected with a think foot plate 2 mm Kerrison under high magnification. The posterior longitudinal ligament was then elevated with an angled curet and incised with a 15 bladed knife. A careful resection of the posterior longitudinal ligament was carried out using a thin footplate 2 mm Kerrison. Extruded disk fragments causing mechanical compression were carefully dissected. The decompression was then carried out laterally, and a bilateral foraminotomy was performed with a 2 mm thin foot Kerrison. The epidural space was the systematically assessed with a nerve hook in search for disk fragments of scar tissue. An excellent decompression was achieved in both, the dural sac and bilateral exiting nerve roots. The incision was then irrigated with a large amount of antibiotic solution INTERBODY ARTHROPLASTY In order to avoid collapse of the disk space which would result in bilateral foraminal stenosis, and in order to maintain disk space height and function minimally development of adjacent level degeneration, it was necessary to place an interbody device. At this point of the procedure, gentle distraction was applied. The size of the interbody device was then assessed using a trial, and a cross table xray was done for confirmation of appropriate size and position of the device. Then the disk space was irrigated with antibiotic solution, and a 15mm by 6mm Mobi C artificial disk was carefully impacted into the disc space C5-6. An excellent position of the device was achieved. This was confirmed anatomically by feeling the space posterior to the implant and distance to the anterior surface of the dural sac. Radiological confirmation of the position was performed with a cross table AP and lateral X-ray views, performed with the C-arm. SURGICAL DECOMPRESSION AT C6-C7 Under the operative microscopic, an anterior osteophytic spur at C6-7 was carefully removed using the yvan and a self-retaining retractor was placed underneath the longus colli muscle. The annulus was incised with a #15 blade and microdiscectomy was then carefully carried out using angled curets and pituitary forceps. The patient had a posterior osteophytic/disk complex which was producing mass affect on the anterior surface of the dural sac and osteophitic spurs compressing the nerve roots. This was carefully drilled with a TPS drill and resected with a think foot plate 2mm kerrison under high magnification. The posterior longitudinal ligament was then elevated with an angled curet and incised with a 15 bladed knife. A careful ressection of the posterior longitudinal ligament was carried out using a thin footplate 2 mm Kerrison. The decompression was then carried out laterally, and a bilateral foraminotomy was performed with a 2mm thin foot Kerrison. Then the vertebral bodies above and below the disk space were undercut using a 2 mm thin foot Kerrison. The epidural space was the systematically assessed with a nerve hook in search for disk fragments. An excellent decompression was achieved in both, the dural sac and bilateral exiting nerve roots. The incision was then irrigated with a large amount of antibiotic solution INTERBODY ARTHRODHESIS It was not possible to properly visualize the disk space C6-[address] artificial disk, despite multiple attempts At this point of the procedure, the superior and inferior endplates were then evenly decorticated with a TPS drill. The use of a drill in combination with a curette allowed me to systematically remove the cartilagenous endplates, expossing healthy bone for the interbody arthrodesis. forteen millimeters distraction pins were then placed at the vertebral bodies adjacent to the disk space, and gentle distraction was applied. The size of the interbody cage was then assessed using different size spacers, and a rasp was used to ensure no residual cartilage. A PEEK cage of the appropriate size was selected, and the interbody arthrodesis was then preformed by carefully impacting a PEEK cage filled with autologous bone graft to the disc space C6-7. An excellent position of the cage was achieved. This was was confirmed anatomically by feelling the space posterior to the implant and distance to the anterior surface of the dural sac. Radiological confirmation of the position was performed with a cross lateral xray performed with the C-arm. INTERNAL INSTRUMENTAL FIXATION Once that the interbody device was in an appropriate position, it was necessary to stabilize the spine with anterior instrumentation. Anterior instrumentation has demonstrated to increase the rate of fusion, acelerate the patient's recovery, and decrease the rate of failed interbody grafts. At this point of the procedure, the distance between the vertebral bodies was carefully measures, and a Simplicity plate was brought to the field and presented in front of the C6 and 7 vertebral bodies. Coke Handling Supervisor holes were then drilled using the TPS drill, and the plate was then secured to the spine using self-drilling, self-tapping screws. Initially, the inferior right screw was inserted, followed by placement of the contralateral upper screw. The remainding screws were sequentially placed in a contra-lateral fashion. A proper purchase was achieved with all screws and the position of the cage, plate and screws, and alignment of the spine was assessed anatomically by direct visualization, and radiologically by performing a cross lateral xray of the cervical spine with the C-arm. COMPLETION OF THE SURGICAL PROCEDURE Once that each interbody device was in an appropriate position, the distraction was discontinued. The position of the device as well as alignment of the spine were assessed anatomically by direct visualization, and radiologically by performing an AP and lateral X-ray of the cervical spine with the C-arm. The position of the implant was excellent. The incision was irrigated with several liters of antibiotic solution. Hemostasis was achieved with a bipolar. A 7 mm Timo-Shi drain was left in the prevertebral space and externalized through a separate stab incision. The incision was then closed in layers. 3-0 Vicryl with interrupted sutures was used to close the platysma and subcutaneous tissue. The skin was closed with 4- 0 running subcuticular Vicryl and Dermabond was applied to the skin. The drain was secured with a 3-0 nylon. At the end of the procedure the sponge, needle and instrument counts were all correct. The estimated blood loss was less than 70 cc. No blood transfusion was given. No intraoperative complications occurred. The patient received prophylactic antibiotics. The patient was then extubated and transferred to the recovery room in stable condition. Nishant Bermudez MD Sep 10, 2017 15:14
--- NOTE | 2017-09-10 15:16 | RADRPT ---
EXAM DATE/TIME: 09/10/2017 09:53 [facility] COMPARISON: No previous studies available for comparison. INDICATIONS : Artificial disk C5,C6 and fusion C6,C7. MEDICAL HISTORY : diabetes, sinus polyps SURGICAL HISTORY : sinus surgery ENCOUNTER: Initial ACUITY: 1 day PAIN SCORE: Non-responsive. LOCATION: Cervical spine. FINDINGS: 3 fluoroscopic images of the lower cervical spine demonstrate C5-6 with disc prosthesis in good posit ion. There is anterior plate and screw fixation of C6-7 with intradiscal cage. The osseous structures are grossly intact. CONCLUSION: 1. C5-6 disc prosthesis in good position. 2. C6-7 anterior plate and screw fixation. Prabhakar Luque MD on September 10, 2017 at 15:13 Board Certified Radiologist. This report was verified electronically.
[2017-09-10 15:27] VITALS: BP 137/77; PULSE 84; RESP 18; TEMP 96.3; O2SAT 99
[2017-09-10] MEDS: SODIUM CHLOR 0.9% 1000 ML INJ 1,000 ML IV SCH ×2 (15:39→21:00)
[2017-09-10] MEDS: ceFAZolin 2 GM PREMIX 50 ML IV SCH ×2 (15:41→21:56)
[2017-09-10] MEDS: glipiZIDE 10 MG TAB PO SCH (15:41)
[2017-09-10] MEDS: DEXAMETHASONE SOD PHOS 4 MG/ML VIAL IV PUSH SCH ×2 (15:42→21:55)
--- NOTE | 2017-09-10 15:55 | HHI.DCPOC ---
Discharge Care Plan Diagnosis: (1) Status post cervical arthrodesis Goals to Promote Your Health * To prevent worsening of your condition and complications * To maintain your health at the optimal level Directions to Meet Your Goals Take your medications as prescribed Follow your dietary instruction Follow activity as directed Keep your appointments as scheduled Take your immunizations and boosters as scheduled If your symptoms worsen call your PCP, if no PCP go to Urgent Care Center or Emergency Room Smoking is Dangerous to Your Health. Avoid second hand smoke Call the 24-hour hour crisis hotline for domestic abuse at Denisa Lopez Sep 10, 2017 15:55
--- NOTE | 2017-09-10 15:55 | HHI.DS ---
Discharge Summary Admission Date Sep 10, 2017 at 09:40 Discharge Date: Sep 11, 2017 Admitting Diagnosis s/p ACDF (1) Status post cervical arthrodesis ICD Code: Z98.1 - Arthrodesis status (2) Laryngeal nerve paralysis ICD Code: G52.2 - Disorders of vagus nerve Brief History Mr. Marks is a 47 year-old male who presented with intractable neck pain and clinical evidence of C6 and C7 upper extremity radiculopathy. He was found to have C5-6 and C6-7 disk herniations with osteophitic/disk complexes causing mass effect over the exiting nerve roots. He failed maximum nonsurgical management including multiple modalities of conservative nonoperative treatment. A surgical decompression and arthroplasty/arthrodhesis were indicated. Imaging Last Impressions Cervical Spine X-Ray 09/10/17 0000 Signed Impressions: Service Date/Time: Sunday, September 10, 2017 09:53 - CONCLUSION: 1. C5-6 disc prosthesis in good position. 2. C6-7 anterior plate and screw fixation. Prabhakar Luque MD Hospital Course Postop day 1 status post C5 6, C6 7 anterior cervical discectomy and fusion. Patient is now having was pre-voice consistent with recurrent laryngeal nerve palsy. Otherwise not having significant pain or difficulty with swallowing. Exam Exam Results Vital Signs Date Time Temp Pulse Resp B/P (MAP) Pulse Ox O2 Delivery O2 Flow Rate FiO2 09/11/17 10:22 18 09/11/17 08:00 97.7 95 151/81 (104) 100 09/10/17 14:20 Nasal Cannula 2 Intake and Output 09/11/17 09/11/17 09/12/17 08:00 16:00 00:00 Intake Total 300 ml Output Total 10 ml Balance 290 ml Status post C5 6, C6 7 anterior cervical discectomy and fusion. Neurological examination is intact other than for was pre-voice consistent with postop laryngeal nerve palsy. Patient tolerating diet without difficulty. Patient cleared for discharge. Pt Condition on Discharge: Stable Discharge Disposition: Discharge Home Discharge Instructions DIET: Follow Instructions for: Heart Healthy Diet ACTIVITIES You can perform: Weight Bearing As She ADDITIONAL Activity Instructio: Avoid strenuous activities, heavy lifting over 5 lbs, overhead activities, repetitive bending, twisting, pushing, pulling or any activities which might result in stress over the spine. Avoid situation that will put at risk for falls. Use assistive device as needed for walking. Wear cervical collar at all times, may remove only with meals. New Medications: Hydrocodone/Acetaminophen (Hydrocodone-Acetamin 10-325 mg) 10 Mg-325 Mg Tablet 1 TAB PO Q4H PRN for PAIN SCALE 1 TO 10, #62 TAB-CAP 0 Refills Continued Medications: Aspirin DR (Aspirin EC) 81 Mg Tabdr 81 MG PO DAILY, TAB 0 Refills Bupropion HCl ER 12 HR (Bupropion HCl ER 12 HR) 150 Mg Tab 150 MG PO HS, #60 TAB Cholecalciferol (Vitamin D3) 10,000 Unit Tab 82813 UNITS PO DAILY for Nutritional Supplement, #1 BOTTLE 0 Refills Empagliflozin (Jardiance) 10 Mg Tab 10 MG PO HS for Blood Sugar Management, #30 TAB 0 Refills Escitalopram (Lexapro) 10 Mg Tab 10 MG PO DAILY, #30 TAB 0 Refills Fesoterodine ER (Toviaz ER) 4 mg Pina 4 MG PO DAILY for Overactive bladder, #30 TAB 0 Refills Fexofenadine (Lucrecia Allergy) 180 Mg Tab 180 MG PO DAILY for Allergy Management, #30 TAB 0 Refills Fluticasone 12 GM Inh (Flovent Hfa 12 GM Inh) 110 Mcg/Act Inh 1 PUFF INH BID for Asthma Management, #1 INHALER 0 Refills Glipizide (Glipizide) 10 Mg Tab 10 MG PO BIDAC for Blood Sugar Management, #60 TAB 0 Refills Take 30 minutes before a meal Insulin Human NPH Inj (Novolin N Inj) 1,000 Unit/10 Ml Vial 10 UNITS SQ DAILY@0600 for Blood Sugar Management, #10 ML 0 Refills Insulin Human NPH Inj (Novolin N Inj) 1,000 Unit/10 Ml Vial 5 UNITS SQ HS, 0 Refills Linagliptin (Tradjenta) 5 Mg Tab 5 MG PO HS for Blood Sugar Management, #30 TAB 0 Refills Metformin (Metformin) 500 Mg Tab 500 MG PO HS for Blood Sugar Management, #30 TAB 0 Refills With a meal Multivitamin/Iron/Folic Acid (Centrum Adults Tablet) 18 Mg Iron-400 Mcg Tablet 18 TAB-CAP PO DAILY Simvastatin (Zocor) 40 Mg Tab 40 MG PO DAILY for Cholesterol Management, #30 TAB 0 Refills Denisa Lopez Sep 10, 2017 15:55
[2017-09-10 20:00] VITALS: BP 131/77; PULSE 68; RESP 19; TEMP 97.6; O2SAT 97
[2017-09-10] MEDS: DOCUSATE SODIUM 100 MG CAP PO SCH (20:16)
[2017-09-10] MEDS: FLUTICASONE PROPIONATE 110 MCG/ACT 12 GM INHALER INH SCH (20:17)
[2017-09-10] MEDS ORDERED: PATIENT OWN MEDICATION: TRADJENTA 5MG TABLET PO SCH (21:00)
[2017-09-10] MEDS ORDERED: CHLORHEXIDINE GLUCONATE 4% SOLN 120 ML BTL TOP SCH (21:00)
[2017-09-10] MEDS ORDERED: metFORMIN HCL 500 MG TAB PO SCH (21:00)
[2017-09-10] MEDS ORDERED: JARDIANCE 10 MG PO SCH (21:00)
[2017-09-10] MEDS ORDERED: INSULIN HUMAN NPH 1,000 UNITS/10 ML VIAL SQ SCH (21:00)
[2017-09-10] MEDS ORDERED: buPROPion HCL 150 MG SUSTAINED RELEASE TAB PO SCH (21:00)
[2017-09-10] MEDS: MORPHINE SULFATE 4 MG/ML INJ IV PUSH PRN (22:07)
[2017-09-11] VITALS: BP 134/79; PULSE 82; RESP 20; TEMP 97.4; O2SAT 97
[2017-09-11 04:00] VITALS: BP 118/70; PULSE 67; RESP 22; TEMP 97.6; O2SAT 97
[2017-09-11] MEDS: DEXAMETHASONE SOD PHOS 4 MG/ML VIAL IV PUSH SCH ×2 (04:51→09:22)
[2017-09-11] MEDS: ceFAZolin 2 GM PREMIX 50 ML IV SCH (04:52)
[2017-09-11] MEDS ORDERED: INSULIN HUMAN NPH 1,000 UNITS/10 ML VIAL SQ SCH (06:00)
[2017-09-11] MEDS: glipiZIDE 10 MG TAB PO SCH (06:00)
[2017-09-11] MEDS: MORPHINE SULFATE 4 MG/ML INJ IV PUSH PRN (06:18)
[2017-09-11] MEDS: SODIUM CHLOR 0.9% 1000 ML INJ 1,000 ML IV SCH (07:00)
[2017-09-11 08:00] VITALS: BP 151/81; PULSE 95; RESP 18; TEMP 97.7; O2SAT 100
[2017-09-11] MEDS: INSULIN ASPART SUPPLEMENTAL SCALE SQ SCH ×2 (08:00→13:02)
[2017-09-11] MEDS ORDERED: PANTOPRAZOLE SODIUM 40 MG VIAL IVP SCH (09:00)
[2017-09-11] MEDS: FLUTICASONE PROPIONATE 110 MCG/ACT 12 GM INHALER INH SCH (09:00)
[2017-09-11] MEDS ORDERED: TOLTERODINE TARTRATE 4 MG CAP LA PO SCH (09:00)
[2017-09-11] MEDS ORDERED: MULTIVITAMIN TAB PO SCH (09:00)
[2017-09-11] MEDS ORDERED: LORATADINE 10 MG TAB PO SCH (09:00)
[2017-09-11] MEDS ORDERED: PRAVASTATIN SOD 80 MG TAB PO SCH (09:00)
[2017-09-11] MEDS ORDERED: ESCITALOPRAM OXALATE 10 MG TAB PO SCH (09:00)
[2017-09-11] MEDS ORDERED: CHOLECALCIFEROL (VIT D3) 5000 UNIT CAP PO SCH (09:00)
[2017-09-11] MEDS ORDERED: PANTOPRAZOLE SOD 40 MG DELAYED RELEASE TAB PO SCH (09:00)
[2017-09-11] MEDS: DOCUSATE SODIUM 100 MG CAP PO SCH (09:21)
[2017-09-11] MEDS: ACETAMINOPHEN/HYDROcodone 325 MG/10 MG TAB PO PRN ×2 (09:22→13:30)
--- NOTE | 2017-09-11 11:02 | HHI.NSPN ---
History Interval History Postop day 1 status post C5 6, C6 7 anterior cervical discectomy and fusion. Patient is now having was pre-voice consistent with recurrent laryngeal nerve palsy. Otherwise not having significant pain or difficulty with swallowing. Exam Results Vital Signs Date Time Temp Pulse Resp B/P (MAP) Pulse Ox O2 Delivery O2 Flow Rate FiO2 09/11/17 10:22 18 09/11/17 08:00 97.7 95 151/81 (104) 100 09/10/17 14:20 Nasal Cannula 2 Intake and Output 09/11/17 09/11/17 09/12/17 08:00 16:00 00:00 Intake Total 300 ml Output Total 10 ml Balance 290 ml Physical Examination Neurological examination is intact other than for was pre-voice consistent with postop laryngeal nerve palsy. Surgical incision is dry and intact and his EMERSON drain was removed. Medical Decision Making Impression and Plan Impression: Status post C5 6, C6 7 anterior cervical discectomy and fusion. Postop laryngeal nerve palsy. Patient tolerating diet without difficulty. Plan: Patient cleared for discharge today. He will follow up with Dr. Bermudez as scheduled. He understands the laryngeal nerve palsy may take several weeks to months to resolve. Brayan Headley MD Sep 11, 2017 11:02
[2017-09-11 12:00] VITALS: BP 118/69; PULSE 77; RESP 18; TEMP 99.3; O2SAT 96
== END 2017-09-11 14:07 | disposition home or self-care (01) ==
LOC: HSDC 06:37 → HSDI 09:40 → N06B 14:47
PROVIDERS: ADMIT Neurological Surgery; ATTEND Neurological Surgery
DX: M47.812 Spondylosis without myelopathy or radiculopathy, cervical region (principal); M50.222 Other cervical disc displacement at C5-C6 level; M50.223 Other cervical disc displacement at C6-C7 level; E11.8 Type 2 diabetes mellitus with unspecified complications; Z79.4 Long term (current) use of insulin
CPT/HCPCS: 00600; 20936; 22551; 22552; 22853; 22856; 72040; 76000; 82948; 94150; 96365; 96366; 96372; 96375; 96376; 97163; C1713; C1889; G0378; G8987; G8988; J0131; J0690; J1100; J1170; J1580; J1815; J2250; J2270; J2370; J2405; J3010; J3370; J7030; J7050; J7120; L0150; L0172

== ENCOUNTER 2017-09-13 10:48 | Emergency (ER) | payer OTHER ==
[~2017-09-13] VITALS: Ht 172.7 cm; Wt 86.0 kg
[~2017-09-13 10:48] MED LIST changes: +FLUTI110I INH; +HYDR-3583 PO
[2017-09-13 10:50] VITALS: BP 133/78; PULSE 99; RESP 16; TEMP 98.4; O2SAT 95
[2017-09-13] MEDS ORDERED: MEDR4PAK PO (11:39)
[2017-09-13] MEDS ORDERED: DEXAMETHASONE SOD PHOS 20 MG/5 ML VIAL IM ONE (11:45)
--- NOTE | 2017-09-13 11:47 | PD ---
HPI Chief Complaint: Medical Clearance Time Seen by Provider: 11:10 Travel History International Travel<30 days: No Contact w/Intl Traveler<30days: No Traveled to known affect area: No History of Present Illness HPI 47-year-old male that presents to the ED for evaluation of trouble speaking and numbness to the hands. Per patient he had a surgery on his neck by Dr. Bermudez and had a fusion of his cervical spine. Patient has been doing okay except he' s had some loss of voice since and today became more severe so the got concerned as patient also started complaining of some numbness and tingling to his fingers and they called Dr. Bermudez office who recommended that he comes here to get evaluated for possible stroke. Patient denies any numbness or weakness to his face. Per patient his voice is for the most part loss but he is able to phonate and whispered. He denies any numbness or weakness to his legs or arms but he does have some tingling sensation to some of his fingers. This is in ongoing since 3 days ago. Denies any falls or injuries. He has a history of diabetes and hypertension. Denies any headache. No blurry vision or double vision. States compliance with his medications. No other medical issues. No allergies to medication. No pain at this time. Per we are supposed to call Dr. Bermudez when he gets here. PFSH Past Medical History Hx Anticoagulant Therapy: Yes (ASA 81MG DAILY) Cancer: No Cardiovascular Problems: No High Cholesterol: Yes Chemotherapy: No Cerebrovascular Accident: No Diabetes: Yes (ON METFORMIN) Patient Takes Glucophage: Yes Endocrine: Yes Genitourinary: No Hepatitis: No Hiatal Hernia: No Immune Disorder: No Musculoskeletal: No Neurologic: Yes (NUMBNESS AND TINGLING ARMS AND HANDS) Psychiatric: No Reproductive: No Respiratory: Yes (SLEEP APNEA, WHEEZING, cpap to pacu) Thyroid Disease: No Tetanus Vaccination: Unknown Past Surgical History Abdominal Surgery: No AICD: No Cardiac Surgery: No Endocrine Surgery: No Eye Surgery: No Genitourinary Surgery: No Gynecologic Surgery: No Joint Replacement: No Neurologic Surgery: Yes (neck sx) Oral Surgery: Yes (ABSCESS TOOTH DRAINIAGE, SINUS SX, TONSILLECTOMY) Pacemaker: No Thoracic Surgery: No Other Surgery: Yes Family History Family Myocardial Infarction: Yes (mother) Social History Alcohol Use: Yes (occ) Tobacco Use: No Substance Use: No Allergies-Medications (Allergen,Severity, Reaction): Coded Allergies: No Known Allergies (Verified Allergy, Unknown, 09/13/17) Reported Meds & Prescriptions Reported Meds & Active Scripts Active Medrol Dosepak (Methylprednisolone) 4 Mg Dspk 4 Mg PO DIRECTED Per Pharmacist direction Hydrocodone-Acetamin 10-325 mg (Hydrocodone/Acetaminophen) 10 Mg-325 Mg Tablet 1 Tab PO Q4H PRN Reported Flovent Hfa 12 GM Inh (Fluticasone Propionate) 110 Mcg/Act Inh 1 Puff INH BID Centrum Adults Tablet (Multivitamin/Iron/Folic Acid) 18 Mg Iron-400 Mcg Tablet 18 Tab-Cap PO DAILY Zocor (Simvastatin) 40 Mg Tab 40 Mg PO DAILY Glipizide 10 Mg Tab 10 Mg PO BIDAC Take 30 minutes before a meal Lucrecia Allergy (Fexofenadine HCl) 180 Mg Tab 180 Mg PO DAILY Toviaz ER (Fesoterodine Fumarate) 4 mg Pina 4 Mg PO DAILY Lexapro (Escitalopram Oxalate) 10 Mg Tab 10 Mg PO DAILY Jardiance (Empagliflozin) 10 Mg Tab 10 Mg PO HS Vitamin D3 (Cholecalciferol) 10,000 Unit Tab 10,000 Units PO DAILY Bupropion HCl ER 12 HR (Bupropion HCl) 150 Mg Tab 150 Mg PO HS Novolin N Inj (Insulin Human NPH) 1,000 Unit/10 Ml Vial 5 Units SQ HS Novolin N Inj (Insulin Human NPH) 1,000 Unit/10 Ml Vial 10 Units SQ DAILY@0600 Metformin (Metformin HCl) 500 Mg Tab 500 Mg PO HS With a meal Tradjenta (Linagliptin) 5 Mg Tab 5 Mg PO HS Aspirin EC (Aspirin) 81 Mg Tabdr 81 Mg PO DAILY Review of Systems Except as stated in HPI: all other systems reviewed are Neg Physical Exam Narrative GENERAL: SKIN: Warm and dry. HEAD: Atraumatic. Normocephalic. EYES: Pupils equal and round 4 mm reactive to light and accommodation. No scleral icterus. No injection or drainage. EOM intact bilaterally. ENT: No nasal bleeding or discharge. Mucous membranes pink and moist. Tongue is midline. No uvula deviation. NECK: Trachea midline. No JVD. CARDIOVASCULAR: Regular rate and rhythm. No murmurs, S3, S4. RESPIRATORY: No accessory muscle use. Clear to auscultation. Breath sounds equal bilaterally. GASTROINTESTINAL: Abdomen soft, non-tender, nondistended. Hepatic and splenic margins not palpable. MUSCULOSKELETAL: Extremities without clubbing, cyanosis, or edema. No obvious deformities. Full range of motion of the upper and lower extremities bilaterally. 2+ pulses bilaterally. Patient has cervical collar noted. NEUROLOGICAL: Awake and alert. No obvious cranial nerve deficits. Motor grossly within normal limits. Five out of 5 muscle strength in the arms and legs. Normal speech. PSYCHIATRIC: Appropriate mood and affect; insight and judgment normal. Data Data Last Documented VS Vital Signs Date Time Temp Pulse Resp B/P (MAP) Pulse Ox O2 Delivery O2 Flow Rate FiO2 09/13/17 11:19 18 09/13/17 10:50 98.4 99 133/78 (96) 95 Orders Orders Electrocardiogram (09/13/17 11:10) Dexamethasone Inj (Decadron Inj) (09/13/17 11:45) Ed Discharge Order (09/13/17 11:41) MDM Medical Decision Making Medical Screen Exam Complete: Yes Emergency Medical Condition: Yes Medical Record Reviewed: Yes Differential Diagnosis Laryngeal nerve paralysis versus CVA versus postop complications Narrative Course 47-year-old male that presents to the ED for evaluation of loss of voice and numbness and tingling to his fingers. Patient was properly examined and was found to have signs and symptoms consistent with appears to be postop syndrome. Case was discussed with Dr. Bermudez over the phone who was made aware of all findings and states that this is not a stroke but rather expected post op condition. She recommends Decadron shot and prescription for Medrol Dosepak and follow-up in the office this week. Patient was told this and agrees with plan. My attending Dr. Dhaliwal spoke with the family and patient and they were in agreement with plan. All their questions were answered to the best of our ability. Patient was told that he is to do wound care. Follow with PCP. See ED worsening symptoms. Diagnosis Primary Impression: Laryngeal nerve paralysis Patient Instructions: General Instructions Additional Instructions: Follow with Dr. Bermudez this week. See ED worsening symptoms. Take medications as prescribed. Your sugars are going to be higher than normal, this is to be expected. Avoid lowering them too much with your insulin. Med/Other Pt SpecificInfo: Prescription(s) given Scripts Methylprednisolone Dosepak (Medrol Dosepak) 4 Mg Dspk 4 MG PO DIRECTED, #1 DSPK 0 Refills Per Pharmacist direction Prov: Chucky Dhaliwal MD 09/13/17 Disposition: 01 DISCHARGE HOME Condition: Stable Stephen Truong Sep 13, 2017 11:47
[2017-09-13 11:55] VITALS: BP 139/79
[2017-09-20] MEDS ORDERED: MEDR4PAK PO (16:04)
== END 2017-09-13 12:00 | disposition home or self-care (01) ==
LOC: NEPE 10:48
DX: J38.00 Paralysis of vocal cords and larynx, unspecified (principal); I10 Essential (primary) hypertension; E78.00 Pure hypercholesterolemia, unspecified; E11.9 Type 2 diabetes mellitus without complications; Z79.84 Long term (current) use of oral hypoglycemic drugs; Z79.82 Long term (current) use of aspirin
CPT/HCPCS: 96372; 99284; J1100

== ENCOUNTER 2017-11-15 09:56 | Emergency (ER) | payer OTHER ==
[~2017-11-15] VITALS: Ht 172.7 cm; Wt 88.0 kg
[~2017-11-15 09:56] MED LIST changes: +CYCL10TA PO; +MEDR4PAK PO
[2017-11-15 10:14] VITALS: BP 132/84; PULSE 108; RESP 17; TEMP 99.1; O2SAT 99
[2017-11-15 11:50] LABS: BASOPHIL # 0.1 TH/MM3 (0-0.2); BASOPHIL % 0.4 % (0.0-2.0); EOSINOPHIL % 0.1 % (0.0-4.0); HEMOGLOBIN 13.4 GM/DL (13.0-17.0); LYMPH % 14.9 % (9.0-44.0); LYMPHOCYTE # 2.1 TH/MM3 (1.0-4.8); MEAN CELL VOLUME 87.1 FL (80.0-100.0); MEAN CORPUSCULAR HEMOGLOBIN 29.8 PG (27.0-34.0); MEAN CORPUSCULAR HGB CONC 34.3 % (32.0-36.0); MEAN PLATELET VOLUME 8.1 FL (7.0-11.0); MONO % 7.9 % (0.0-8.0); MONOCYTE # 1.1 TH/MM3 (0-0.9); NEUT % 76.7 % (16.0-70.0); PLATELET COUNT 258 TH/MM3 (150-450); RED BLOOD COUNT 4.48 MIL/MM3 (4.50-5.90); RED CELL DISTRIBUTION WIDTH 13.7 % (11.6-17.2); WHITE BLOOD COUNT 14.4 TH/MM3 (4.0-11.0)
[2017-11-15] MEDS ORDERED: PIPERACIL-TAZO 4.5 GM PREMIX 100 ML IV STA (11:55)
[2017-11-15] MEDS ORDERED: SODIUM CHLOR 0.9% 1000 ML INJ 1,000 ML IV ONE (11:55)
[2017-11-15 12:00] VITALS: RESP 18; O2SAT 98
[2017-11-15] MEDS ORDERED: ONDANSETRON HCL 4 MG/2 ML VIAL IV PUSH ONE (12:00)
[2017-11-15] MEDS ORDERED: MORPHINE SULFATE 2 MG/ML INJ IV PUSH ONE (12:00)
--- NOTE | 2017-11-15 12:00 | PD ---
HPI Chief Complaint: Skin Problem Time Seen by Provider: 11:55 Travel History International Travel<30 days: No Contact w/Intl Traveler<30days: No Traveled to known affect area: No History of Present Illness HPI 47-year-old male patient with history of diabetes, right vocal cord paralysis status post vocal cord surgery last week and liposuction of the abdominal fat in order to use on the vocal cord surgery, presents to the ER today for several days history of worsening and right lower quadrant abdominal pain, bruising, fevers. He had talked to his physicians and they are concerned of a possible abdominal wound infection. Modifying Factors: None Associated Signs & Symptoms: Right lower quadrant abdominal wound area pain, bruising, fever Risk Factors: Surgery last week PFSH Past Medical History Hx Anticoagulant Therapy: Yes (ASA 81MG DAILY) Cancer: No Cardiovascular Problems: No High Cholesterol: Yes Chemotherapy: No Cerebrovascular Accident: No Diabetes: Yes (ON METFORMIN) Endocrine: Yes Genitourinary: No Hepatitis: No Hiatal Hernia: No Immune Disorder: No Musculoskeletal: No Neurologic: Yes (NUMBNESS AND TINGLING ARMS AND HANDS) Psychiatric: No Reproductive: No Respiratory: Yes (SLEEP APNEA, WHEEZING, cpap to pacu) Thyroid Disease: No Past Surgical History Abdominal Surgery: No AICD: No Cardiac Surgery: No Endocrine Surgery: No Eye Surgery: No Genitourinary Surgery: No Gynecologic Surgery: No Joint Replacement: No Neurologic Surgery: Yes (neck sx) Oral Surgery: Yes (ABSCESS TOOTH DRAINIAGE, SINUS SX, TONSILLECTOMY) Pacemaker: No Thoracic Surgery: No Other Surgery: Yes Social History Alcohol Use: Yes (occ) Tobacco Use: No Substance Use: No Allergies-Medications (Allergen,Severity, Reaction): Coded Allergies: No Known Allergies (Verified Allergy, Unknown, 11/15/17) Reported Meds & Prescriptions Reported Meds & Active Scripts Active Hydrocodone-Acetamin 10-325 mg (Hydrocodone/Acetaminophen) 10 Mg-325 Mg Tablet 1 Tab PO Q4H PRN Reported Flovent Hfa 12 GM Inh (Fluticasone Propionate) 110 Mcg/Act Inh 1 Puff INH BID Centrum Adults Tablet (Multivitamin/Iron/Folic Acid) 18 Mg Iron-400 Mcg Tablet 18 Tab-Cap PO DAILY Zocor (Simvastatin) 40 Mg Tab 40 Mg PO DAILY Lucrecia Allergy (Fexofenadine HCl) 180 Mg Tab 180 Mg PO DAILY Lexapro (Escitalopram Oxalate) 10 Mg Tab 10 Mg PO DAILY Jardiance (Empagliflozin) 10 Mg Tab 10 Mg PO HS Vitamin D3 (Cholecalciferol) 10,000 Unit Tab 10,000 Units PO DAILY Bupropion HCl ER 12 HR (Bupropion HCl) 150 Mg Tab 150 Mg PO HS Novolin N Inj (Insulin Human NPH) 1,000 Unit/10 Ml Vial 5 Units SQ HS Novolin N Inj (Insulin Human NPH) 1,000 Unit/10 Ml Vial 10 Units SQ DAILY@0600 Metformin (Metformin HCl) 500 Mg Tab 500 Mg PO HS With a meal Tradjenta (Linagliptin) 5 Mg Tab 5 Mg PO HS Aspirin EC (Aspirin) 81 Mg Tabdr 81 Mg PO DAILY Review of Systems Except as stated in HPI: all other systems reviewed are Neg Physical Exam Narrative GENERAL: Well-developed middle-age male patient currently in mild distress. Awake and oriented 3. SKIN: Focused skin assessment warm/dry. HEAD: Atraumatic. Normocephalic. EYES: Pupils equal and round. No scleral icterus. No injection or drainage. ENT: No nasal bleeding or discharge. Mucous membranes pink and moist. NECK: Trachea midline. No JVD. The right neck surgical wound appears to be clean, dry, intact with no surrounding erythema or edema. CARDIOVASCULAR: Regular rate and rhythm. No murmur appreciated. RESPIRATORY: No accessory muscle use. Clear to auscultation. Breath sounds equal bilaterally. GASTROINTESTINAL: Abdomen soft, the right lower quadrant abdomen is ecchymotic, very tender to palpation especially near the right lower quadrant surgical incision area, nondistended. Hepatic and splenic margins not palpable. MUSCULOSKELETAL: No obvious deformities. No clubbing. No cyanosis. No edema. NEUROLOGICAL: Awake and alert. No obvious cranial nerve deficits. Motor grossly within normal limits. Normal speech. PSYCHIATRIC: Appropriate mood and affect; insight and judgment normal. Data Data Last Documented VS Vital Signs Date Time Temp Pulse Resp B/P (MAP) Pulse Ox O2 Delivery O2 Flow Rate FiO2 11/15/17 14:12 98.0 96 17 147/75 (99) 99 Room Air Orders Orders Complete Blood Count With Diff (11/15/17 11:06) Basic Metabolic Panel (Bmp) (11/15/17 11:06) Sepsis Workup Initiated (11/15/17 ) Lactic Acid Sepsis Protocol (11/15/17 11:55) Urinalysis - C+S If Indicated (11/15/17 11:55) Blood Culture (11/15/17 11:55) Blood Glucose (11/15/17 11:55) Ecg Monitoring (11/15/17 11:55) Iv Access Insert/Monitor (11/15/17 11:55) Oximetry (11/15/17 11:55) Oxygen Administration (11/15/17 11:55) Ct Abd/Pel W Iv Contrast(Rout) (11/15/17 11:55) Piperacil-Tazo 4.5 Gm Premix (Zosyn 4.5 (11/15/17 11:55) Sodium Chlor 0.9% 1000 Ml Inj (Ns 1000 M (11/15/17 11:55) Morphine Inj (Morphine Inj) (11/15/17 12:00) Ondansetron Inj (Zofran Inj) (11/15/17 12:00) Iohexol 350 Inj (Omnipaque 350 Inj) (11/15/17 13:29) Ed Discharge Order (11/15/17 14:57) Labs Laboratory Tests Test 11/15/17 11:32 11/15/17 12:00 11/15/17 13:56 White Blood Count 14.4 TH/MM3 Red Blood Count 4.48 MIL/MM3 Hemoglobin 13.4 GM/DL Hematocrit 39.0 % Mean Corpuscular Volume 87.1 FL Mean Corpuscular Hemoglobin 29.8 PG Mean Corpuscular Hemoglobin Concent 34.3 % Red Cell Distribution Width 13.7 % Platelet Count 258 TH/MM3 Mean Platelet Volume 8.1 FL Neutrophils (%) (Auto) 76.7 % Lymphocytes (%) (Auto) 14.9 % Monocytes (%) (Auto) 7.9 % Eosinophils (%) (Auto) 0.1 % Basophils (%) (Auto) 0.4 % Neutrophils # (Auto) 11.0 TH/MM3 Lymphocytes # (Auto) 2.1 TH/MM3 Monocytes # (Auto) 1.1 TH/MM3 Eosinophils # (Auto) 0.0 TH/MM3 Basophils # (Auto) 0.1 TH/MM3 CBC Comment DIFF FINAL Differential Comment Blood Urea Nitrogen 11 MG/DL Creatinine 0.76 MG/DL Random Glucose 215 MG/DL Calcium Level 8.4 MG/DL Sodium Level 134 MEQ/L Potassium Level 3.9 MEQ/L Chloride Level 101 MEQ/L Carbon Dioxide Level 23.3 MEQ/L Anion Gap 10 MEQ/L Estimat Glomerular Filtration Rate 110 ML/MIN Lactic Acid Level 1.7 mmol/L Urine Color LIGHT-YELLOW Urine Turbidity CLEAR Urine pH 6.5 Urine Specific [place] 1.024 Urine Protein NEG mg/dL Urine Glucose (UA) 1000 mg/dL Urine Ketones TRACE mg/dL Urine Occult Blood NEG Urine Nitrite NEG Urine Bilirubin NEG Urine Urobilinogen LESS THAN 2.0 MG/DL Urine Leukocyte Esterase NEG Urine WBC LESS THAN 1 /hpf Microscopic Urinalysis Comment CATH-CULT NOT IND MDM Medical Decision Making Medical Screen Exam Complete: Yes Emergency Medical Condition: Yes Medical Record Reviewed: Yes Interpretation(s) Laboratory Tests Test 11/15/17 11:32 11/15/17 12:00 11/15/17 13:56 White Blood Count 14.4 TH/MM3 (4.0-11.0) Red Blood Count 4.48 MIL/MM3 (4.50-5.90) Neutrophils (%) (Auto) 76.7 % (16.0-70.0) Neutrophils # (Auto) 11.0 TH/MM3 (1.8-7.7) Monocytes # (Auto) 1.1 TH/MM3 (0-0.9) Random Glucose 215 MG/DL (74-106) Calcium Level 8.4 MG/DL (8.5-10.1) Sodium Level 134 MEQ/L (136-145) Urine Glucose (UA) 1000 mg/dL (NEG) Urine Ketones TRACE mg/dL (NEG) Last 24 hours Impressions Abdomen/Pelvis CT 11/15/17 1155 Signed Impressions: Service Date/Time: Wednesday, November 15, 2017 13:24 - CONCLUSION: 1. No acute intra-abdominal process identified. 2. There is high density fluid in the subcutaneous fat of the anterior abdominal wall on the right side. This extends from a point just above the umbilicus down to the low pelvis. This would be most consistent with hemorrhage. This area demonstrates a maximum of approximately 3 cm in thickness. Tony Cardozo MD Differential Diagnosis Right lower quadrant abdominal wound area pain, fevers: Abscess versus cellulitis versus intra-abdominal injuries or acute processes Narrative Course Lab work did show leukocytosis. IV antibiotics were initiated after blood cultures were drawn. I do not see any obvious drainage from the surgical site of the abdomen. CAT scan is showing what appears to be a hematoma at the site, and no signs of acute intra-abdominal injuries or issues. I have discussed the case with Dr. Frazier, patient's surgeon, and she states that the patient is due to see her tomorrow for an appointment. At this point, patient is afebrile and vital signs are stable. And she states that the patient can follow-up regarding this issue tomorrow. Patient should return for any worsening in pain , or new symptoms as needed. We will give the patient Keflex as per our discussion with his surgeon. Patient has pain medications at home. The plan was discussed with patient and and they state understanding. Diagnosis Primary Impression: Abdominal wall hematoma Med/Other Pt SpecificInfo: Prescription(s) given Scripts Cephalexin (Keflex) 500 Mg Capsule 500 MG PO Q6H for Infection for 7 Days, #28 CAP 0 Refills Prov: Jesus Reynoso MD 11/15/17 Disposition: 01 DISCHARGE HOME Condition: Stable Jesus Reynoso MD Nov 15, 2017 12:00
[2017-11-15] MEDS ORDERED: FLUTI110I INH (12:02)
[2017-11-15 12:15] LABS: BICARBONATE 23.3 MEQ/L (21.0-32.0); CALCIUM 8.4 MG/DL (8.5-10.1); CREATININE 0.76 MG/DL (0.60-1.30)
[2017-11-15 13:25] VITALS: BP 147/75; PULSE 93; RESP 18; TEMP 98.1; O2SAT 99
[2017-11-15] MEDS ORDERED: IOHEXOL 350 MG/ML 10 ML VIAL (for RAD DIAG) IVCONTRAST ONE (13:29)
--- NOTE | 2017-11-15 13:47 | RADRPT ---
EXAM DATE/TIME: 11/15/2017 13:24 [facility] COMPARISON: CT SINUSES W/O CONTRAST, March 29, 2016, 17:10. INDICATIONS : Right lower quadrant pain post liposuction 1 week ago IV CONTRAST: 94 cc Omnipaque 350 (iohexol) IV ORAL CONTRAST: No oral contrast ingested. RADIATION DOSE: 12.31 CTDIvol (mGy) MEDICAL HISTORY : Diabetes mellitus type 1. SURGICAL HISTORY : abdominal lipo for vocal cord repair ENCOUNTER: Initial ACUITY: 4 - 6 days PAIN SCALE: 5/10 LOCATION: Right lower quadrant TECHNIQUE: Volumetric scanning of the abdomen and pelvis was performed. Using automated exposure control and ad justment of the mA and/or kV according to patient size, radiation dose was kept as low as reasonably achievable to obtain optimal diagnostic quality images. DICOM format image data is available electro nically for review and comparison. FINDINGS: The visualized portion of lung base is clear. The appearance of the liver, spleen, pancreas, adrenal glands and left kidney is within normal limits . The examination demonstrates a 2.1 x 1.8 cm simple cyst within the right kidney. The abdominal aorta is normal in caliber. There is no retroperitoneal lymphadenopathy. The visualized loops of small and large bowel in the upper abdomen are unremarkable. Examination of the anterior abdominal wall demonstrates a high density fluid collection in the subcut aneous soft tissues extending from a point just above the umbilicus down to the pelvis. This would be most consistent with hemorrhage. There is no free fluid within the pelvis. No iliac or inguinal adenopathy is seen. Visualized osseous structures are intact. CONCLUSION: 1. No acute intra-abdominal process identified. 2. There is high density fluid in the subcutaneous fat of the anterior abdominal wall on the right si de. This extends from a point just above the umbilicus down to the low pelvis. This would be most con sistent with hemorrhage. This area demonstrates a maximum of approximately 3 cm in thickness. Tony Cardozo MD on November 15, 2017 at 13:39 Board Certified Radiologist. This report was verified electronically.
[2017-11-15 14:12] VITALS: BP 147/75; PULSE 96; RESP 17; TEMP 98; O2SAT 99
[2017-11-15 14:13] LABS: BILIRUBIN, URINE NEG (NEG); BLOOD, URINE NEG (NEG); GLUCOSE,URINE 1000 mg/dL (NEG); KETONE, URINE TRACE mg/dL (NEG); NITRITE,URINE NEG (NEG); PH, URINE 6.5 (5.0-8.5); URINE COLOR LIGHT-YELLOW (YELLW/STRAW); URINE LEUKOCYTE ESTERASE NEG (NEG)
[2017-11-15] MEDS ORDERED: CEPH-460 PO (15:04)
[2017-11-15 15:30] VITALS: BP 130/77; TEMP 97.8
== END 2017-11-15 15:30 | disposition home or self-care (01) ==
LOC: NEPE 09:56
DX: S30.1XXA Contusion of abdominal wall, initial encounter (principal); D72.829 Elevated white blood cell count, unspecified; E11.9 Type 2 diabetes mellitus without complications; J38.01 Paralysis of vocal cords and larynx, unilateral; E78.00 Pure hypercholesterolemia, unspecified; Z79.4 Long term (current) use of insulin; Z79.899 Other long term (current) drug therapy; Z79.82 Long term (current) use of aspirin; X58.XXXA Exposure to other specified factors, initial encounter
CPT/HCPCS: 74177; 80048; 81001; 83605; 85025; 87040; 96365; 96375; 99284; J2270; J2405; J2543; J7030; Q9967